=== PATIENT | female | born 1970 | race Caucasian/White ===

== ENCOUNTER 2016-11-06 10:04 | Inpatient (IN) | payer OTHER ==
[~2016-11-06] VITALS: Ht 172.7 cm; Wt 136.3 kg
[~2016-11-06 10:04] MED LIST: ASPIR-LOW81 MG PO; ATORVASTATIN CA40 MG PO; BUSPAR10 MG PO; BUSPIRONE HCL15 MG PO; CALCIUM 500 MG1 EACH PO; CIPRO500 MG PO; CLONAZEPAM2 MG PO; COZAAR50 MG PO; CRANBERRY PLUS1 EAC1 PO; CYCLOBENZAPRINE10 MG PO; FIBER1 GM PO; GLIPIZIDE ER2.5 M1 PO; GLIPIZIDE10 M1 PO; GLIPIZIDE10 MG PO; GLUCOTROL10 MG PO; HUMALOG100 UNIT/1 SQ; KLONOPIN1 MG PO; LANTUS 10100 UNITS/; LANTUS 3 M100 UNITS1 SC; LISINOPRIL5 MG PO; MECLIZINE HCL25 M3 PO; METFORMIN HCL; METFORMIN HCL1000 MG PO; NEURONTIN100 MG PO; NOVOLOG 10100 UNITS/ SC; PAXIL20 MG PO; PAXIL40 MG PO; PERCOCET 5/31 TABLET PO; PIOGLITAZONE HC45 MG PO; SIMVASTATIN40 MG PO; SYMBICORT60 INHALAT IH; TAMIFLU75 MG PO; TORADOL10 MG PO; TOUJEO SOL300 UNIT/1 SC; VITAMIN D2000 UNIT PO; ZESTRIL,PRINIV2.5 MG PO
[2016-11-06 10:41] LABS: POINT-OF-CARE METER ID UU14174212
[2016-11-06 10:52] VITALS: BP 139/82
[2016-11-06 11:48] LABS: METH RESISTANT S AUREUS PCR NEGATIVE (NEGATIVE)
[2016-11-06 11:53] LABS: PROBE CHECK PASS; SPECIMEN PROCESSING CONTROL PASS
[2016-11-06 15:14] LABS: POINT-OF-CARE METER ID UU13113675; POINT-OF-CARE USER ID ADMSLT55
[2016-11-06 16:26] VITALS: BP 176/86
[2016-11-06 17:42] LABS: POINT-OF-CARE METER ID UU14162508
[2016-11-06 19:55] VITALS: BP 152/91
[2016-11-06 23:25] VITALS: BP 159/77
[2016-11-06 23:40] LABS: POINT-OF-CARE METER ID UU14162508
[2016-11-07 03:44] VITALS: BP 155/82
[2016-11-07 06:05] LABS: POINT-OF-CARE METER ID UU14162508
[2016-11-07 07:08] VITALS: BP 140/70
[2016-11-07 07:25] LABS: ANION GAP 12 MEQ/L (2-14); CHLORIDE 100 MEQ/L (99-109); GFR ESTIMATE (CALCULATED) > 59 mL/min/; GLUCOSE 228 mg/dL (70-99); MAGNESIUM 1.8 mg/dl (1.3-2.7); POTASSIUM 4.5 MEQ/L (3.7-5.4); SAMPLE HEMOLYSIS CHECK 1; SAMPLE ICTERIC CHECK 0; SAMPLE LIPEMIA CHECK 0; SODIUM 131 MEQ/L (136-147); UREA NITROGEN (BUN) 9 mg/dL (9-23)
[2016-11-07 07:34] LABS: HEMATOCRIT 40.9 % (36.0-46.0); MCH 30.8 PG (29.0-34.0); MCHC 34.7 G/DL (30.0-36.0); MCV 88.7 FL (83-99); MEAN PLAT.VOLUME 10.9 uM^3 (9.5-12.4); PLATELET COUNT 255 K/uL (156-360); RBC DIS.WIDTH-CV 12.1 % (11.8-14.6); RBC DIS.WIDTH-SD 39.7 % (39-53); RED BLOOD COUNT 4.61 M/uL (3.80-5.20)
[2016-11-07 07:55] LABS: WHITE BLOOD COUNT 11.5 K/uL (4.1-10.2)
[2016-11-07] MEDS ORDERED: OXAYDO5 MG PO (08:05)
== END 2016-11-07 11:45 | disposition home or self-care (01) | DRG 621 ==
LOC: 2SOUTH 10:04 → 2EAST 16:15
PROVIDERS: Surgery
PROC: 0DB64Z3 Excision of Stomach, Percutaneous Endoscopic Approach, Vertical (ICD-10-PCS; principal; 2016-11-06)
DX: E66.01 Morbid (severe) obesity due to excess calories (principal); E11.9 Type 2 diabetes mellitus without complications; E03.9 Hypothyroidism, unspecified; E78.5 Hyperlipidemia, unspecified; G47.30 Sleep apnea, unspecified; F32.9 Major depressive disorder, single episode, unspecified; F41.9 Anxiety disorder, unspecified; M79.7 Fibromyalgia; Z79.82 Long term (current) use of aspirin; Z68.42 Body mass index [BMI] 45.0-49.9, adult; Z79.01 Long term (current) use of anticoagulants; K21.9 Gastro-esophageal reflux disease without esophagitis; Z87.891 Personal history of nicotine dependence
CPT/HCPCS: 80048; 82948; 83735; 84100; 85027; 87641; C9113; J0131; J0330; J0690; J1100; J1170; J1644; J1650; J1815; J2250; J2405; J2550; J2710; J2765; J3010; J3480; J7120; S0020

== ENCOUNTER 2017-06-17 15:51 | Emergency (ER) | payer OTHER ==
[~2017-06-17] VITALS: Ht 172.7 cm; Wt 106.0 kg
[~2017-06-17 15:51] MED LIST changes: +OXAYDO5 MG PO
[2017-06-17] MEDS ORDERED: PERCOCET 5/31 TABLET PO (20:34)
[2017-06-17 22:05] VITALS: BP 131/81
== END 2017-06-17 22:30 | disposition home or self-care (01) ==
LOC: RME 15:51 → EME 15:51 → RME 22:30
DX: S40.021A Contusion of right upper arm, initial encounter (principal); M54.9 Dorsalgia, unspecified; V00.181A Fall from other rolling-type pedestrian conveyance, initial encounter; V00.188A Other accident on other rolling-type pedestrian conveyance, initial encounter; Y93.I9 Activity, other involving external motion; E78.5 Hyperlipidemia, unspecified; E11.9 Type 2 diabetes mellitus without complications; Z79.4 Long term (current) use of insulin; Z79.82 Long term (current) use of aspirin; F17.200 Nicotine dependence, unspecified, uncomplicated
CPT/HCPCS: 73030; 73080; 73110; 73130; 99281; 99284